=== PATIENT | female | born 1980 | race African-American/Black ===

== ENCOUNTER 2018-11-10 13:24 | Emergency (ER) | payer MEDICAID ==
[~2018-11-10] VITALS: Ht 162.6 cm; Wt 68.0 kg
[2018-11-10] MEDS ORDERED: KETOROLAC 60MG/2ML VIAL IM ONE (14:00)
[2018-11-10 14:41] VITALS: BP 127/84
== END 2018-11-10 15:14 | disposition home or self-care (01) ==
LOC: ER 13:24
DX: J06.9 Acute upper respiratory infection, unspecified (principal); F17.210 Nicotine dependence, cigarettes, uncomplicated
CPT/HCPCS: 81025; 96372; 99283; J1885

== ENCOUNTER 2019-02-09 09:07 | Emergency (ER) | payer MEDICAID ==
[~2019-02-09] VITALS: Ht 167.6 cm; Wt 61.0 kg
[2019-02-09] MEDS ORDERED: KETOROLAC 60MG/2ML VIAL IM ONE (10:00)
[2019-02-09 10:40] VITALS: BP 158/81
== END 2019-02-09 10:40 | disposition home or self-care (01) ==
LOC: ER 09:07
DX: K08.89 Other specified disorders of teeth and supporting structures (principal)
CPT/HCPCS: 81025; 96372; 99283; J1885

== ENCOUNTER 2019-04-17 08:22 | Emergency (ER) | payer MEDICAID ==
[~2019-04-17] VITALS: Ht 162.6 cm; Wt 68.0 kg
[2019-04-17 08:45] VITALS: BP 121/82
[2019-04-17] MEDS ORDERED: ACETAMINOPHEN 325MG TABLET PO STA (12:07)
== END 2019-04-17 14:26 | disposition home or self-care (01) ==
LOC: ER 08:22
DX: B34.9 Viral infection, unspecified (principal); R03.0 Elevated blood-pressure reading, without diagnosis of hypertension
CPT/HCPCS: 71045; 99283